=== PATIENT | male | born 1965 | race Caucasian/White ===

== ENCOUNTER 2019-10-15 15:01 | Emergency (ER) | payer OTHER ==
[~2019-10-15] VITALS: Ht 177.8 cm; Wt 81.8 kg
[2019-10-15 16:49] LABS: ALANINE AMINOTRANSFERASE 30 U/L (12-78); ALBUMIN 3.1 G/DL (3.4-5.0); ALBUMIN/GLOBULIN RATIO 0.9 (1.1-1.5); ALKALINE PHOSPHATASE 95 IU/L (46-116); ANION GAP 11 (8-16); ASPARTATE AMINO TRANSFERASE 18 U/L (10-37); BILIRUBIN,TOTAL 0.1 MG/DL (0.1-1.0); BLOOD UREA NITROGEN 4 MG/DL (7-18); BUN/CREATININE RATIO 4.5 (5.4-32.0); CALCIUM 8.2 MG/DL (8.5-10.1); CHLORIDE 105 MMOL/L (99-107); CREATININE 0.88 MG/DL (0.60-1.10); GLUCOSE 159 MG/DL (70-104); POTASSIUM 3.3 MMOL/L (3.5-5.1); SODIUM 142 MMOL/L (135-145); TOTAL CARBON DIOXIDE 26.2 MMOL/L (24-32); TOTAL PROTEIN 6.5 G/DL (6.4-8.2); eGFR 90 ML/MIN
--- NOTE | 2019-10-15 17:10 | NUR ---
[facility] CALL[facility] AND STATED PT. WAS ON A 5150. THEY WERE GETTING THE PT. CLEARED TO GO TO [facility]. [facility] DID LABS WHICH SHOWED A POTASSIUM THAT SHOWED 2.8, AND HE HAD TO COME TO OUR ER TO BE GIVEN POTASSIUM SO, HE COULD BE TRANSFERED TO [facility]. THE REALITY IS THAT THE CLINIC CLOSED AT 1630 AND NOW THE PT. HAS TO REMAIN IN THE ER FOR THE REST OF THE NIGHT UNTIL WE CAN GET HIM BACK TO THE [facility].
--- NOTE | 2019-10-15 17:14 | NUR ---
I WAS GIVEN THE PHONE NUMBER OF [phone]. WHEN I CALL IT, IT GOES TO LEAVE A MESSAGE OR CALL 911 FOR EMERGENCY
--- NOTE | 2019-10-15 17:20 | NUR ---
PT TO OVERFLOW
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
--- NOTE | 2019-10-15 18:30 | NUR ---
Assumed care of patient, pt. sitting on edge of bed soaking his feet at this time. He confirms that he is diabetic and BS obtained, WNL. Pt. presents as calm and cooperative, rr are even and unlabored.
--- NOTE | 2019-10-15 19:00 | NUR ---
Called gurdeep Delaney [facility] to see if they are still planning on accepting pt and to see what the plan for trasportation is, however was unable to reach. Left a message and will endorse to AM shift.
--- NOTE | 2019-10-15 19:05 | NUR ---
Arturo PERALTA Bed Control
--- NOTE | 2019-10-15 19:30 | NUR ---
Per Scott[facility] until the morning, r/t [facility] from the [facility] to see if [facility] the pt. However, if not, then [facility] will evaluate.
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
--- NOTE | 2019-10-15 20:45 | NUR ---
He denies taking any medicaions at this time, but reports that the [facility] doctor did order him some, but he is not sure what they are and he has not started taking them. Found a list of medicaions in pt's chart ordered by LUCAS Cunningham, will endorse to AM shift for further clarification by telephone during hours of operation.
--- NOTE | 2019-10-15 21:03 | NUR ---
Pt. has open blisters on toes on both feet. Applied triple antibiotic ointment to open blisterson on Pt.'s toes.
--- NOTE | 2019-10-15 22:32 | NUR ---
Pt. continues to sleep at this time, laying on his left side, rr reamain even and unlabored.
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
--- NOTE | 2019-10-15 23:20 | NUR ---
Per MD Sami, wait and complete Med Recc tommorrow after getting in contact with [facility] to [facility]. Will endorse to AM shift.
--- NOTE | 2019-10-16 00:26 | NUR ---
Pt. awakens and requests an HS snack, snack provided. He continues to perserverate over staff identifiying him by the correct name, states intensely, "I am Lewis Sickler!" This television writer provieds additional reassurance to pt. regarding his identity. Pt. then proceeds to get on the the floor and do push-ups. Redirected by this television writer to get back in bed, pt. complies. He cotinues to be calm and cooperative, states repeatedly, "Yes ma'am!"
--- NOTE | 2019-10-16 02:30 | NUR ---
Pt. up to use the BR, able to ambulate independently, he then returns to bed. RR remain even and unlabored, will continue to monitor.
--- NOTE | 2019-10-16 02:48 | NUR ---
Obtained pictures of pt's bilateral top of feet while he was awake. Pictures will be placed in chart. As noted earlier, ABT ointment placed on feet, and pt. denies any pain at areas. No s/s of increased redness or infection. Per MD JEET to evaluate in the morning.
--- NOTE | 2019-10-16 04:32 | NUR ---
Pt. continues to sleep at this time, no s/s of distress, will continue to monitor.
--- NOTE | 2019-10-16 06:02 | NUR ---
Per Dr. Frey, pt. does not need any further intervention to wounds on feet at this time, will endorse to AM shift.
--- NOTE | 2019-10-16 06:04 | NUR ---
Pt. awoken for V/S, he remains calm and cooperative, no s/s of distress, will continue to monitor.
--- NOTE | 2019-10-16 07:00 | NUR ---
Pt lying in bed with eyes closed in no apparent distress.
[2019-10-16] MEDS ORDERED: potassium chloride 10mEq ER tablet PO SCH (08:00)
--- NOTE | 2019-10-16 09:00 | NUR ---
Pt awoke for breakfast. Pt up to the bathroom. Steady gait. Pt affect is flat. Pt denies a/v hallucinations at this time and denies S.I./H.I. Pt calm and cooperative. Pt does exhibit delusional thoughts and talks about having something implanted in his right hand. Pt does not exhibit agitation.
--- NOTE | 2019-10-16 09:16 | NUR ---
Just spoke with Yas from [place]. They are expecting this pt and are requesting updated labs to be faxed to them at: . After receiving the labs and after the MD gets out of rounds, they will contact us back to let us know how to proceed.
--- NOTE | 2019-10-16 10:06 | NUR ---
[facility] REQUESTING COPY OF PTS LEGAL HOLD TO ACCEPT PT, COPY FAXED TO [phone].
--- NOTE | 2019-10-16 11:00 | NUR ---
Pt slightly restless, but remains cooperative and pleasant.
--- NOTE | 2019-10-16 11:27 | NUR ---
Left VM with [facility] re: when pt can transfer.
--- NOTE | 2019-10-16 11:51 | NUR ---
Received a call from Hung at [facility]. Report given and he asked that we arrange transport and that they are ready to receive him. Will call back with YOSHI when arranged.
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
--- NOTE | 2019-10-16 13:00 | NUR ---
here to visit with pt. Addendum: 10/16/19 at 1312 by BHAVANI wrong pt. Pt has no visitor. Pt resting quietly in bed awaiting lunch and transfer.
--- NOTE | 2019-10-16 14:35 | NUR ---
After multiple [facility] entities declined responsibility for transportation of this pt, [facility] is now arranging transportation.
--- NOTE | 2019-10-16 15:37 | NUR ---
SPOKE TO WILLIAM MARTINEZ THE SAW TAILER OF [facility]. HE ASSURES ME THAT THEY WILL BE HERE TO TRANSPORT PT. TO [facility] AT 1830
--- NOTE | 2019-10-16 15:37 | NUR ---
Just notified that [facility] has a contract with the [place] and will transport. [facility] says they will be here by 183. Hung Ashtoner notified of the ETA of 2099.
[2019-10-16 17:07] VITALS: BP 125/76
--- NOTE | 2019-10-16 17:17 | NUR ---
Pt resting quietly in bed. Pt has had no complaints or requests. Pt has been calm and cooperative.
== END 2019-10-16 17:50 | disposition home or self-care (01) ==
LOC: ER 15:01
DX: Z04.6 Encounter for general psychiatric examination, requested by authority (principal); E87.6 Hypokalemia; E11.9 Type 2 diabetes mellitus without complications
CPT/HCPCS: 36415; 80053; 82948; 93005; 99285

== ENCOUNTER 2021-02-01 09:32 | Emergency (ER) | payer OTHER ==
[~2021-02-01] VITALS: Ht 177.8 cm; Wt 83.2 kg
[2021-02-01 10:47] LABS: BASOPHILS % (AUTO) 0.6 % (0-1); EOSINOPHILS # (AUTO) 0.1 X10'3 (0-0.9); EOSINOPHILS % (AUTO) 0.7 % (0-6); HEMATOCRIT 36.5 % (42.0-52.0); HEMOGLOBIN 12.2 g/dl (14.0-17.9); LYMPHOCYTES # (AUTO) 0.8 X10'3 (1.1-4.8); LYMPHOCYTES % (AUTO) 11.3 % (21-51); MEAN CORPUSCULAR HEMOGLOBIN 30.8 PG (27.0-31.0); MEAN CORPUSCULAR HGB CONC 33.4 g/dL (33.0-36.5); MEAN CORPUSCULAR VOLUME 92.1 FL (78-98); MEAN PLATELET VOLUME 7.7 FL (7.4-10.4); MONOCYTES # (AUTO) 0.7 X10'3 (0-0.9); MONOCYTES % (AUTO) 10.5 % (2-12); NEUTROPHILS # (AUTO) 5.4 X10'3 (1.8-7.7); NEUTROPHILS % (AUTO) 76.9 % (42-75); PLATELET COUNT 272 X10'3 (140-440); RED BLOOD COUNT 3.96 X10'6 (4.70-6.10); RED CELL DISTRIBUTION WIDTH 13.5 % (11.5-14.5)
[2021-02-01 11:05] LABS: ALANINE AMINOTRANSFERASE 52 U/L (12-78); ALBUMIN 3.7 G/DL (3.4-5.0); ALBUMIN/GLOBULIN RATIO 0.9 (1.1-1.5); ALKALINE PHOSPHATASE 131 IU/L (46-116); ANION GAP 10 (8-16); ASPARTATE AMINO TRANSFERASE 51 U/L (10-37); BILIRUBIN,TOTAL 0.4 MG/DL (0.1-1.0); BLOOD UREA NITROGEN 9 MG/DL (7-18); CALCIUM 8.7 MG/DL (8.5-10.1); CHLORIDE 101 MMOL/L (99-107); CREATININE 0.82 MG/DL (0.60-1.10); GLUCOSE 208 MG/DL (70-104); POTASSIUM 4.2 MMOL/L (3.5-5.1); SODIUM 139 MMOL/L (135-145); TOTAL CARBON DIOXIDE 27.7 MMOL/L (24-32); TOTAL PROTEIN 7.6 G/DL (6.4-8.2); eGFR > 90 ML/MIN
[2021-02-01 11:13] LABS: ETHANOL < 0.010 GM/DL (0.0-0.010)
[2021-02-01] MEDS ORDERED: olanzapine 10mg tablet PO STA (11:31)
[2021-02-01] MEDS ORDERED: LORazepam 1 MG tablet PO ONE (11:35)
--- NOTE | 2021-02-01 11:43 | NUR ---
Patient ambulated to bed 24. Pt. is loud and not wanting to give up his personal belongings. Security present x 2. Patient behaving paranoid, stating that he is the pants maker, and how is he going to report to the [place], being in here. Pt changed into green scrubs. Now laying in bed resting. Will continue to monitor.
[2021-02-01 12:52] LABS: CLARITY,URINE CLEAR (Clear); COLOR,URINE STRAW (Yellow); GLUCOSE, URINE NEGATIVE (Neg); KETONES,URINE NEGATIVE (Neg); LEUKOCYTE ESTERASE ,URINE NEGATIVE (Neg); NITRITES, URINE NEGATIVE (Neg); OCCULT BLOOD,URINE NEGATIVE (Neg); PH,URINE 6.5 (4.8-8.0); PROTEIN,URINE NEGATIVE (Neg); UROBILINOGEN,URINE 0.2 E.U/dL (0.2-1.0)
[2021-02-01 12:55] LABS: UA COLLECTION TYPE CLN CATCH MIDSTREAM
[2021-02-01 13:05] LABS: URINE AMPHETAMINE SCREEN NEGATIVE (Neg); URINE BARBITUATE SCREEN NEGATIVE (Neg); URINE BENZODIAZEPINES SCREEN NEGATIVE (Neg); URINE CANNABINOID SCREEN NEGATIVE (Neg); URINE COCAINE SCREEN NEGATIVE (Neg); URINE METHADONE SCREEN NEGATIVE (Neg); URINE OPIATE SCREEN NEGATIVE (Neg); URINE PHENCYCLIDINE SCREEN NEGATIVE (Neg)
--- NOTE | 2021-02-01 13:12 | NUR ---
FAXED [facility]
--- NOTE | 2021-02-01 13:30 | NUR ---
Pt. continues sleeping in bed. No distress noted.
--- NOTE | 2021-02-01 15:05 | NUR ---
Houston from [facility] at bedside to attempt to evaluate the patient, patient sleeping, Houston states he will re evaluate patient at a later time.
--- NOTE | 2021-02-01 17:09 | NUR ---
Pt. sleeping in bed. No signs of distress noted.
--- NOTE | 2021-02-01 18:37 | NUR ---
One to one with the patient to assess mood and severity of thought disorder. The patient was cooperative with the assessment. He continues to believe that he is the president of the [place]. He stated that he lives in [facility] but has not been taking medications. He is a and served in the [place]. He denies that he has a mental illness and states he doesn't need any medications. He does admit that in the past he has been diagnoised as Schizoaffective disorder and stated he has been in psychiatric hospitals in the past but was vague on the details. He denies thoughts to harm himself or others. He stated he has an income from [employer] and the [employer]. He states he rents a room in [facility].
[2021-02-01] MEDS ORDERED: METF500T PO (18:48)
[2021-02-01] MEDS ORDERED: ATOR20TA PO (18:48)
[2021-02-01] MEDS ORDERED: METF-900 PO (18:48)
--- NOTE | 2021-02-01 19:47 | NUR ---
The patient appears to be sleeping at this time.
--- NOTE | 2021-02-01 22:21 | NUR ---
The patient patient appears to be sleeping
--- NOTE | 2021-02-01 23:21 | NUR ---
The patient appears to be sleeping
--- NOTE | 2021-02-02 01:29 | NUR ---
The patient appears to be sleeping
--- NOTE | 2021-02-02 02:30 | NUR ---
The patient appears to be sleeping
--- NOTE | 2021-02-02 04:37 | NUR ---
The patient is up and used the bathroom. He currently is agitated and talking to himself. At one point yelling and cursing out. Talking about the president. He was offered medications but stated he did not need or want psychiatric medications.
--- NOTE | 2021-02-02 07:00 | NUR ---
pt is asleep, no needs at this time
[2021-02-02] MEDS: atorvastatin 20mg tablet PO SCH (07:45)
[2021-02-02] MEDS: metFORMIN 500mg tablet PO SCH ×2 (07:45→18:20)
[2021-02-02] MEDS: olanzapine 10mg tablet PO SCH (07:45)
--- NOTE | 2021-02-02 08:00 | NUR ---
pt is awake, went to the bathroom, no other needs at this time
--- NOTE | 2021-02-02 08:15 | NUR ---
provider MD Dangelo at bedside, lanced abcess on pt right thumb, pt cooperative with care, wound dressed per protocol
--- NOTE | 2021-02-02 09:00 | NUR ---
pt is awake, spoke with Trudy [facility] 5150 will be rewritten and upheld, pt calm during interview
--- NOTE | 2021-02-02 10:05 | NUR ---
pt is laying on his left side, no needs at this time
--- NOTE | 2021-02-02 11:06 | NUR ---
pt is supine in bed, eyes closed, regular breathing present, no needs at this time
--- NOTE | 2021-02-02 12:09 | NUR ---
pt is resting on his right side, eyes open, regular breathing observed, no needs at this time
--- NOTE | 2021-02-02 13:04 | NUR ---
pt is laying on his right side, eyes closed, regular breathing present, no needs at this time
--- NOTE | 2021-02-02 14:05 | NUR ---
pt is laying on his left side, eyes closed, regular breathing present, no needs at this time
--- NOTE | 2021-02-02 14:42 | NUR ---
relieving RN for break, pt is resting quietly on gurney
--- NOTE | 2021-02-02 16:00 | NUR ---
PATIENT LYING IN BED ON RIGHT SIDE EYES CLOSED, RR EVEN AND UNALBORED
--- NOTE | 2021-02-02 17:30 | NUR ---
PATIENT LYING IN BED RREVEN UNLABORED, DENYING SI/HI, REMAINS DELUSIONAL
--- NOTE | 2021-02-02 19:00 | NUR ---
Pt awoke for dinner and was cooperative with pm assessment.
--- NOTE | 2021-02-02 21:00 | NUR ---
Pt has been awake in bed since dinner and just recently fell to sleep without signs of distress.
--- NOTE | 2021-02-02 23:00 | NUR ---
Pt remains asleep without signs of distress.
--- NOTE | 2021-02-03 01:00 | NUR ---
Pt sleeping calmly without signs of distress.
--- NOTE | 2021-02-03 03:00 | NUR ---
Pt sleeping peacefully without signs of distress.
--- NOTE | 2021-02-03 05:00 | NUR ---
Pt asleep in bed without signs of distress.
--- NOTE | 2021-02-03 06:30 | NUR ---
Pt sleeping on left side. Respirations unlabored. NAD
--- NOTE | 2021-02-03 07:30 | NUR ---
Pt sitting on side of bed quietly.
[2021-02-03] MEDS: atorvastatin 20mg tablet PO SCH (08:03)
[2021-02-03] MEDS: olanzapine 10mg tablet PO SCH (08:03)
[2021-02-03] MEDS: metFORMIN 500mg tablet PO SCH ×2 (08:03→17:33)
--- NOTE | 2021-02-03 08:30 | NUR ---
Pt sitting up in bed eating breakfast.
--- NOTE | 2021-02-03 09:30 | NUR ---
Pt ambulated to the restroom w/o difficulty. Pt denies any needs at this time.
--- NOTE | 2021-02-03 09:51 | NUR ---
Spoke with Jeane at [facility]. They are accepting the pt at their facility. Dr Stein is the accepting physician. Jeane just asked that we call back when we know an ETA.
--- NOTE | 2021-02-03 09:56 | NUR ---
Spoke with Janice at the [facility] office. They were not aware the pt was accepted at [facility]. They will call the facility and then arrange transport and let us know when they know a time.
--- NOTE | 2021-02-03 10:09 | NUR ---
Fátima from the [facility] office called. They confirmed that [facility] is accepting the pt. They are seeking a regional refrigerated cdl truck driver and will let us know when they know a time.
--- NOTE | 2021-02-03 10:17 | NUR ---
Fátima from the [facility] office called and said that the expected time for the courtesy driver for the pt is 1744 today.
--- NOTE | 2021-02-03 10:19 | NUR ---
Let Jeane at [facility] know that the pt would be leaving here at 1745 and would be down there around 2044.
--- NOTE | 2021-02-03 10:32 | NUR ---
Pt resting quietly in his bed.
--- NOTE | 2021-02-03 11:30 | NUR ---
Pt sleeping on left side. Respirations unlabored. NAD
--- NOTE | 2021-02-03 12:52 | NUR ---
Pt ambulated to the restroom without any difficulty. Let pt know that lunch would be here in the next 30 minutes.
--- NOTE | 2021-02-03 13:33 | NUR ---
Pt ate his lunch and is now resting quietly in his bed.
--- NOTE | 2021-02-03 14:36 | NUR ---
Pt resting awake in bed.
--- NOTE | 2021-02-03 15:27 | NUR ---
Pt resting quietly in bed.
--- NOTE | 2021-02-03 16:46 | NUR ---
Pt sleeping in bed. Respirations unlabored. NAD
--- NOTE | 2021-02-03 17:37 | NUR ---
Pt given a sandwich, applesauce, cheese stick, and crackers as he is going to be transported to [facility] at 1745 and we are not sure if his dinner tray will get here before he leaves.
[2021-02-03 17:42] VITALS: BP 132/80
== END 2021-02-03 18:23 ==
LOC: ER 09:33
DX: F22 Delusional disorders (principal); Z20.822 Contact with and (suspected) exposure to COVID-19; E11.9 Type 2 diabetes mellitus without complications; Z79.899 Other long term (current) drug therapy
CPT/HCPCS: 36415; 80053; 80305; 80320; 81003; 82948; 84443; 85025; 87426; 99285